=== PATIENT | male | born 1955 | race Caucasian/White ===

== ENCOUNTER 2018-11-29 09:55 | Emergency (ER) | payer OTHER ==
[~2018-11-29] VITALS: Ht 175.3 cm; Wt 70.3 kg
[2018-11-29 09:55] VITALS: BP 0/0
[~2018-11-29 09:55] MED LIST: ABILIFY15 M1 PO; ACCUNEB IH; ADV100/50 INH; CLARITIN10 MG; DEXEDRINE SPANS15 MG PO; EFFEXOR XR37.5 MG PO; LOVASTATIN20 MG PO; SINGULAIR5 MG; VALIUM5 MG PO
== END 2018-11-29 16:05 | disposition expired ==
LOC: ED 09:55
DX: I46.9 Cardiac arrest, cause unspecified (principal); I10 Essential (primary) hypertension; J45.909 Unspecified asthma, uncomplicated